=== PATIENT | male | born 1975 | race Two or more races ===

== ENCOUNTER 2019-07-11 22:45 | Emergency (ER) | payer BC, MEDICAID ==
[~2019-07-11] VITALS: Ht 162.6 cm; Wt 74.8 kg
[2019-07-11 23:29] VITALS: BP 115/72
== END 2019-07-12 04:40 | disposition home or self-care (01) ==
LOC: ER 22:45
DX: M25.512 Pain in left shoulder (principal); V43.52XA Car driver injured in collision with other type car in traffic accident, initial encounter; Y93.89 Activity, other specified; Y99.8 Other external cause status; Y92.410 Unspecified street and highway as the place of occurrence of the external cause
CPT/HCPCS: 73000

== ENCOUNTER 2023-11-11 08:28 | Emergency (ER) | payer BC, MEDICAID, OTHER ==
[~2023-11-11] VITALS: Ht 152.4 cm; Wt 74.7 kg
[2023-11-11 09:25] VITALS: BP 114/77; PULSE 73; RESP 16; TEMP 98.3; O2SAT 97
[2023-11-11] MEDS ORDERED: METH-1182 PO (09:44)
[2023-11-11] MEDS ORDERED: IBUP-1454 PO (09:44)
== END 2023-11-11 09:51 | disposition home or self-care (01) ==
LOC: ER 08:28
DX: S16.1XXA Strain of muscle, fascia and tendon at neck level, initial encounter (principal); S30.810A Abrasion of lower back and pelvis, initial encounter; V49.88XA Car occupant (driver) (passenger) injured in other specified transport accidents, initial encounter; Y93.I9 Activity, other involving external motion; Y92.89 Other specified places as the place of occurrence of the external cause; Y99.8 Other external cause status
CPT/HCPCS: 72040